=== PATIENT | male | born 1980 | race African-American/Black ===

== ENCOUNTER 2021-07-06 14:32 | Emergency (ER) | payer SELFPAY ==
[~2021-07-06] VITALS: Ht 172.7 cm; Wt 79.0 kg
[2021-07-06] MEDS ORDERED: CYCL5TAB PO (16:29)
[2021-07-06] MEDS ORDERED: NAPR-681 PO (16:29)
[2021-07-06 16:48] VITALS: BP 137/73
== END 2021-07-06 16:58 | disposition home or self-care (01) ==
LOC: ER 14:32
DX: S39.012A Strain of muscle, fascia and tendon of lower back, initial encounter (principal); V49.50XA Passenger injured in collision with unspecified motor vehicles in traffic accident, initial encounter; Y93.89 Activity, other specified; Y92.89 Other specified places as the place of occurrence of the external cause; Y99.8 Other external cause status
CPT/HCPCS: 72100; 99283